=== PATIENT | female | born 1965 | race Caucasian/White ===

== ENCOUNTER 2016-12-27 | Emergency (ER) | payer SELFPAY ==
--- NOTE | 2016-12-27 10:35 | ER Document Report ---
ED Medical Screen (RME) - General Stated Complaint: EAR PAIN Notes: Patient complains of bilateral ear laurie for 2 weeks, left is worse. Has had nasal congestion, no fever. Has tried [id number] Sudafed for relief of symptoms. I have greeted and performed a rapid initial assessment of this patient. A comprehensive ED assessment and evaluation of the patient, analysis of test results and completion of the medical decision making process will be conducted by additional ED providers. - Related Data Allergies/Adverse Reactions: banana [Banana] Allergy (Verified 03/01/12 20:05) cinnamon [Cinnamon] Allergy (Verified 03/01/12 20:05) Garlic [From Garlic Oil] Allergy (Verified 03/01/12 20:05) Penicillins Allergy (Verified 03/01/12 20:05) Sulfa (Sulfonamide Antibiotics) Allergy (Verified 03/01/12 20:05) Past Medical History - Past Medical History Cardiac Medical History: Denies: Hx Coronary Artery Disease, Hx Heart Attack, Hx Hypertension Pulmonary Medical History: Denies: Hx Asthma, Hx Bronchitis, Hx COPD, Hx Pneumonia Neurological Medical History: Denies: Hx Cerebrovascular Accident, Hx Seizures GI Medical History: Denies: Hx Hepatitis, Hx Hiatal Hernia, Hx Ulcer Musculoskeltal Medical History: Denies Hx Arthritis Infectious Medical History: Denies: Hx Hepatitis Past Surgical History: Denies: Hx Hysterectomy, Hx Mastectomy, Hx Open Heart Surgery, Hx Pacemaker - Immunizations Hx Diphtheria, Pertussis, Tetanus Vaccination: No Physical Exam - Vital signs Vitals: Temp Pulse Resp BP Pulse Ox 99.0 F 75 18 149/89 H 98 12/27/16 10:12/27/16 10:12/27/16 10:12/27/16 10:12/27/16 10:27 - General General appearance: Appears well, Alert In distress: None Notes: normal gait Course - Vital Signs Vital signs: Temp Pulse Resp BP Pulse Ox 99.0 F 75 18 149/89 H 98 12/27/16 10:12/27/16 10:12/27/16 10:12/27/16 10:12/27/16 10:27
--- NOTE | 2016-12-27 11:46 | ER Document Report ---
HPI - HPI Patient complains to provider of: ear pain Onset: Other - 2 weeks Onset/Duration: Gradual Quality of pain: Achy Pain Level: 4 Context: Patient states she had upper respiratory symptoms recently that have now progressed to bilateral ear pain. Patient states left ear is more tender than the right. Patient does report some nasal congestion. Patient denies any fever. She denies any fluid or drainage from the ears bilaterally. Associated Symptoms: Earache, Rhinnorhea. denies: Nonproductive cough, Fever Exacerbated by: Denies Relieved by: Denies Similar symptoms previously: No Recently seen / treated by doctor: No - ROS ROS below otherwise negative: Yes Systems Reviewed and Negative: Yes All other systems reviewed and negative - CONSTITUTIONAL Constitutional: DENIES: Fever, Chills - EENT EENT: REPORTS: Ear Pain, Congestion. DENIES: Sore Throat - CARDIOVASCULAR Cardiovascular: DENIES: Chest pain - RESPIRATORY Respiratory: DENIES: Trouble Breathing, Coughing - GASTROINTESTINAL Gastrointestinal: DENIES: Nausea, Patient vomiting, Diarrhea - REPRODUCTIVE Reproductive: DENIES: : - MUSCULOSKELETAL Musculoskeletal: DENIES: Back Pain, Neck Pain - DERM Skin Color: Normal Skin Problems: None Past Medical History - General Information source: Patient - Social History Smoking Status: Never Smoker Chew tobacco use (# tins/day): No Frequency of alcohol use: Rare Drug Abuse: None Occupation: none Lives with: Family Family History: Reviewed & Not Pertinent Patient has suicidal ideation: No Patient has homicidal ideation: No - Medical History Medical History: Negative - Past Medical History Cardiac Medical History: Denies: Hx Coronary Artery Disease, Hx Heart Attack, Hx Hypertension Pulmonary Medical History: Denies: Hx Asthma, Hx Bronchitis, Hx COPD, Hx Pneumonia Neurological Medical History: Denies: Hx Cerebrovascular Accident, Hx Seizures Renal/ Medical History: Denies: Hx Peritoneal Dialysis GI Medical History: Denies: Hx Hepatitis, Hx Hiatal Hernia, Hx Ulcer Musculoskeltal Medical History: Denies Hx Arthritis Infectious Medical History: Denies: Hx Hepatitis Past Surgical History: Reports: Other - Removal of the salivary gland - Immunizations Hx Diphtheria, Pertussis, Tetanus Vaccination: No Vertical Provider Document - CONSTITUTIONAL Agree With Documented VS: Yes Exam Limitations: No Limitations General Appearance: WD/WN, No Apparent Distress - INFECTION CONTROL TRAVEL OUTSIDE OF THE [place] IN LAST 30 DAYS: No - HEENT HEENT: Atraumatic, Normocephalic, Tympanic Membrane Red - left, Tympanic Membrane Bulging - right worse than left. negative: Pharyngeal Exudate, Pharyngeal Tenderness - NECK Neck: Normal Inspection, Supple. negative: Lymphadenopathy-Left, Lymphadenopathy-Right - RESPIRATORY Respiratory: Breath Sounds Normal, No Respiratory Distress O2 Sat by Pulse Oximetry: 98 - CARDIOVASCULAR Cardiovascular: Regular Rate, Regular Rhythm, No Murmur - MUSCULOSKELETAL/EXTREMETIES Musculoskeletal/Extremeties: MAEW - NEURO Level of Consciousness: Awake, Alert, Appropriate - DERM Integumentary: Warm, Dry, No Rash Course - Vital Signs Vital signs: Temp Pulse Resp BP Pulse Ox 99.0 F 75 18 149/89 H 98 12/27/16 10:27 12/27/16 10:27 12/27/16 10:27 12/27/16 10:27 12/27/16 10:27 Discharge - Discharge Clinical Impression: Elevated blood pressure reading Otitis media Qualifiers: Otitis media type: unspecified Laterality: left Chronicity: acute Condition: Stable Disposition: HOME, SELF-CARE Instructions: Otitis Media ([facility]), Azithromycin ([facility]), Oral Narcotic Medication ([facility]) Additional Instructions: Return immediately for any new or worsening symptoms Followup with your primary care provider, call tomorrow to make a followup appointment You may use saline nasal spray [id number] to help with your symptoms. Your blood pressure was elevated today have your primary doctor recheck this in 2 days. You may use Coricidin HBP [id number] to help with congestion Prescriptions: Azithromycin [Zithromax 250 mg Tablet] 250 mg PO ASDIR PRN #6 tablet PRN Reason: Hydrocodone/Acetaminophen [[place] 5-325 Tablet] 1 each PO Q4 PRN #15 tablet PRN Reason: Forms: Elevated Blood Pressure [facility] - Follow up as needed [facility] [Provider Group] - Follow up tomorrow
== END 2016-12-27 12:08 | disposition home or self-care (01) ==
CPT/HCPCS: 99282

== ENCOUNTER 2017-01-07 09:56 | Emergency (ER) | payer SELFPAY ==
[2017-01-07 10:02] VITALS: BP 139/82
--- NOTE | 2017-01-07 11:15 | ER Document Report ---
ED General - General Chief Complaint: Ear Pain Stated Complaint: EAR PAIN Mode of Arrival: Ambulatory Information source: Patient Notes: 51-year-old female presents with complaints of left ear pain pressure. Patient notes symptoms have been ongoing for about a week. Denies any fevers or chills. Patient was treated for pneumonia with azithromycin notes the pneumonia improved but the ear pain continues Denies any other concerns TRAVEL OUTSIDE OF THE [place] IN LAST 30 DAYS: No - HPI Onset: Last week Onset/Duration: Persistent Quality of pain: Achy Severity: Mild Pain Level: 1 Associated symptoms: Other Exacerbated by: Denies Relieved by: Denies Similar symptoms previously: Yes Recently seen / treated by doctor: Yes - Related Data Allergies/Adverse Reactions: banana [Banana] Allergy (Verified 01/07/17 11:09) cinnamon [Cinnamon] Allergy (Verified 01/07/17 11:09) Garlic [From Garlic Oil] Allergy (Verified 01/07/17 11:09) Penicillins Allergy (Verified 01/07/17 11:09) Sulfa (Sulfonamide Antibiotics) Allergy (Verified 01/07/17 11:09) Past Medical History - Social History Smoking Status: Never Smoker Cigarette use (# per day): No Chew tobacco use (# tins/day): No Smoking Education Provided: No Frequency of alcohol use: Occasional Drug Abuse: None Family History: Reviewed & Not Pertinent Patient has suicidal ideation: No Patient has homicidal ideation: No - Past Medical History Cardiac Medical History: Denies: Hx Coronary Artery Disease, Hx Heart Attack, Hx Hypertension Pulmonary Medical History: Denies: Hx Asthma, Hx Bronchitis, Hx COPD, Hx Pneumonia Neurological Medical History: Denies: Hx Cerebrovascular Accident, Hx Seizures Renal/ Medical History: Denies: Hx Peritoneal Dialysis GI Medical History: Denies: Hx Hepatitis, Hx Hiatal Hernia, Hx Ulcer Musculoskeltal Medical History: Denies Hx Arthritis Infectious Medical History: Denies: Hx Hepatitis Past Surgical History: Reports: Other - Removal of the salivary gland. Denies: Hx Hysterectomy, Hx Mastectomy, Hx Open Heart Surgery, Hx Pacemaker - Immunizations Hx Diphtheria, Pertussis, Tetanus Vaccination: No Review of Systems - Review of Systems Notes: REVIEW OF SYSTEMS: CONSTITUTIONAL : Denies fever, chills, or sweats. Denies recent illness. EENT: Left ear pain CARDIOVASCULAR: Denies chest pain. Denies palpitations or racing or irregular heart beat. Denies ankle edema. RESPIRATORY: Denies cough, cold, or chest congestion. Denies shortness of breath, difficulty breathing, or wheezing. GASTROINTESTINAL: Denies abdominal pain or distention. Denies nausea, vomiting , or diarrhea. Denies blood in vomitus, stools, or per rectum. Denies black, tarry stools. Denies constipation. GENITOURINARY: Denies difficulty urinating, painful urination, burning, frequency, blood in urine, or discharge. FEMALE GENITOURINARY: Denies vaginal bleeding, heavy or abnormal periods, irregular periods. Denies vaginal discharge or odor. MUSCULOSKELETAL: Denies back or neck pain or stiffness. Denies joint pain or swelling. SKIN: Denies rash, lesions or sores. HEMATOLOGIC : Denies easy bruising or bleeding. LYMPHATIC: Denies swollen, enlarged glands. NEUROLOGICAL: Denies confusion or altered mental status. Denies passing out or loss of consciousness. Denies dizziness or lightheadedness. Denies headache. Denies weakness or paralysis or loss of use of either side. Denies problems with gait or speech. Denies sensory loss, numbness, or tingling. Denies seizures. PSYCHIATRIC: Denies anxiety or stress. Denies depression, suicidal ideation, or homicidal ideation. ALL OTHER SYSTEMS REVIEWED AND NEGATIVE. Dictation was performed using [employer] voice recognition software PHYSICAL EXAMINATION: GENERAL: Well-appearing, well-nourished and in no acute distress. HEAD: Atraumatic, normocephalic. EYES: Pupils equal round and reactive to light, extraocular movements intact, conjunctiva are normal. ENT: Small effusion noted on the left TM NECK: Normal range of motion, supple without lymphadenopathy LUNGS: Breath sounds clear to auscultation bilaterally and equal. No wheezes rales or rhonchi. HEART: Regular rate and rhythm without murmurs ABDOMEN: Soft, nontender, nondistended abdomen. No guarding, no rebound. No masses appreciated. Female : deferred Musculoskeletal: Normal range of motion, no pitting or edema. No cyanosis. NEUROLOGICAL: Cranial nerves grossly intact. Normal speech, normal gait. Normal sensory, motor exams PSYCH: Normal mood, normal affect. SKIN: Warm, Dry, normal turgor, no rashes or lesions noted. Physical Exam - Vital signs Vitals: Temp Pulse Resp BP Pulse Ox 97.8 F 73 16 139/82 H 100 01/07/17 10:01 01/07/17 10:01 01/07/17 10:01 01/07/17 10:01 01/07/17 10:01 Course - Re-evaluation Re-evalutation: 01/07/17 16:13 On evaluation patient has a left otitis media, encouraged to use Benadryl decongestants will be placed on antibiotics otherwise patient appears well is in no distress After performing a Medical Screening Examination, I estimate there is LOW risk for ACUTE CORONARY SYNDROME, RESPIRATORY FAILURE, SEPSIS OR MENINGITIS, thus I consider the discharge disposition reasonable. The patient and I have discussed the diagnosis and risks, and we agree with discharging home with close follow- up. We also discussed returning to the Emergency Department immediately if new or worsening symptoms occur. We have discussed the symptoms which are most concerning (e.g., changing or worsening pain, trouble swallowing or breathing, neck stiffness, fever) that necessitate immediate return. - Vital Signs Vital signs: Temp Pulse Resp BP Pulse Ox 97.8 F 73 16 139/82 H 100 01/07/17 10:01 01/07/17 10:01 01/07/17 10:01 01/07/17 10:01 01/07/17 10:01 Discharge - Discharge Clinical Impression: Ear pain, left Left otitis media Qualifiers: Otitis media type: serous Chronicity: acute Recurrence: not specified as recurrent Qualified Code(s): H65.02 - Acute serous otitis media, left ear Condition: Stable Disposition: HOME, SELF-CARE Instructions: Otitis Media ([facility]) Additional Instructions: Follow up with your physician tomorrow for further care or return to the ED IMMEDIATELY if symptoms worsen or new concerns occur Prescriptions: Cephalexin Monohydrate [Keflex 500 mg Capsule] 500 mg PO BID #20 capsule
== END 2017-01-07 11:24 | disposition home or self-care (01) ==
LOC: ER 09:56
DX: H65.02 Acute serous otitis media, left ear (principal); H92.02 Otalgia, left ear
CPT/HCPCS: 99282

== ENCOUNTER 2019-01-06 15:29 | Emergency (ER) | payer SELFPAY ==
--- NOTE | 2019-01-06 16:11 | ER Document Report ---
Addendum entered and electronically signed by LESLYE CUETO MD 01/06/19 19:16: Course - Re-evaluation Re-evalutation: 01/06/19 19:14 Note: I had a long conversation with the psychiatric therapist who was evaluated the patient and discussed the case with Dr. Cortes. Anterior lengthy discussion Dr. Cortes had recommended outpatient discharge. I did interview the patient and she is alert and oriented x3. She adamantly denies any suicidal ideation. She has been depressed over her current financial situation and the fact that she is homeless. A list of resources was given to her by the adoption social worker. She prefers to go home today and she is accompanied by her grandmother who seems supportive. There is no criteria to hold her against her will. I did give her the number the [facility] as her blood pressure has been elevated. - Vital Signs Vital signs: Temp Pulse Resp BP Pulse Ox 98.2 F 93 169/96 H 98 01/06/19 15:41 01/06/19 15:41 01/06/19 15:41 01/06/19 15:41 - Laboratory Result Diagrams: 01/06/19 15:55 01/06/19 15:55 Laboratory results interpreted by me: 01/06/19 15:55 Glucose 113 H Salicylates < 1.0 L Acetaminophen < 10 L Addendum entered and electronically signed by LESLYE CUETO MD 01/06/19 19:14: Discharge - Discharge Clinical Impression: Right foot drop, Suicidal ideation, Mood disorder NOS Condition: Stable Disposition: HOME, SELF-CARE Instructions: [facility] Additional Instructions: You have been evaluated by both medical and behavioral health providers while in the emergency department. you have been cleared by both acute medical and psychiatric services. DEPRESSION: Your evaluation reveals that you have mental depression. While symptoms may be vague, they often include disturbance of sleep, fatigue, loss of appetite, and general loss of interest in life. While depression may be a side effect of drugs, or a reaction to a major change in your life, many cases have no known cause. If depression is acute, and related to a major loss in your life, you can e xpect it to clear completely with time. If you have been depressed a long time, are prone to repeated bouts of depression or low mood, or have been thinking of suicide, get help. Depression can be treated with anti-depressant medication and counselling. Long-term depression will often take a few weeks to clear, even with appropriate medication. Follow-up care is important. SUICIDAL IDEATION: Suicidal ideation is a common medical term for thoughts about suicide, which may be as detailed as a formulated plan, without the suicidal act itself. Although most people who undergo suicidal ideation do not commit suicide, some go on to make suicide attempts. The range of suicidal ideation varies greatly from fleeting to detailed planning, role playing, and unsuccessful attempts. While thoughts about suicide are common, most people do not carry out serious actions to commit suicide. Based upon your evaluation and discussion with you, we do not believe you are currently at risk to act upon your thoughts of suicide. You have agreed to return to the Emergency Department, at any time, if you feel inclined to act upon your suicidal thoughts. FOLLOW-UP CARE: You have been provided with the outpatient mental health resource sheet and the [facility] resources. If you experience worsening or a significant change in your symptoms, notify the physician immediately, utilize mobile crisis or return to the Emergency Department at any time for re-evaluation. Note: I put the number for the [facility] on the chart. This is free clinic affiliated with the [facility]. You should get a recheck and blood pressure in the next week. Your blood pressure was elevated. Forms: Elevated Blood Pressure Referrals: [facility] [Outside] - Follow up as needed Addendum entered and electronically signed by LESLYE CUETO MD 01/06/19 19:13: Discharge - Discharge Clinical Impression: Right foot drop, Suicidal ideation, Mood disorder NOS Condition: Stable Disposition: HOME, SELF-CARE Instructions: [facility] Additional Instructions: You have been evaluated by both medical and behavioral health providers while in the emergency department. you have been cleared by both acute medical and psychiatric services. DEPRESSION: Your evaluation reveals that you have mental depression. While symptoms may be vague, they often include disturbance of sleep, fatigue, loss of appetite, and general loss of interest in life. While depression may be a side effect of drugs, or a reaction to a major change in your life, many cases have no known cause. If depression is acute, and related to a major loss in your life, you can expect it to clear completely with time. If you have been depressed a long time, are prone to repeated bouts of depression or low mood, or have been thinking of suicide, get help. Depression can be treated with anti-depressant medication and counselling. Long-term depression will often take a few weeks to clear, even with appropriate medication. Follow-up care is important. SUICIDAL IDEATION: Suicidal ideation is a common medical term for thoughts about suicide, which may be as detailed as a formulated plan, without the suicidal act itself. Although most people who undergo suicidal ideation do not commit suicide, some go on to make suicide attempts. The range of suicidal ideation varies greatly from fleeting to detailed planning, role playing, and unsuccessful attempts. While thoughts about suicide are common, most people do not carry out serious actions to commit suicide. Based upon your evaluation and discussion with you, we do not believe you are currently at risk to act upon your thoughts of suicide. You have agreed to return to the Emergency Department, at any time, if you feel inclined to act upon your suicidal thoughts. FOLLOW-UP CARE: You have been provided with the outpatient mental health resource sheet and the [facility] resources. If you experience worsening or a significant change in your symptoms, notify the physician immediately, utilize mobile crisis or return to the Emergency Department at any time for re-evaluation. Forms: Elevated Blood Pressure Referrals: [facility] [Outside] - Follow up as needed Addendum entered and electronically signed by CADEN SALMON LPC 01/06/19 19:08: Discharge - Discharge Clinical Impression: Right foot drop, Suicidal ideation Condition: Stable Disposition: HOME, SELF-CARE Additional Instructions: You have been evaluated by both medical and behavioral health providers while in the emergency department. you have been cleared by both acute medical and psychiatric services. DEPRESSION: Your evaluation reveals that you have mental depression. While symptoms may be vague, they often include disturbance of sleep, fatigue, loss of appetite, and general loss of interest in life. While depression may be a side effect of drugs, or a reaction to a major change in your life, many cases have no known cause. If depression is acute, and related to a major loss in your life, you can expect it to clear completely with time. If you have been depressed a long time, are prone to repeated bouts of depression or low mood, or have been thinking of suicide, get help. Depression can be treated with anti-depressant medication and counselling. Long-term depression will often take a few weeks to clear, even with appropria te medication. Follow-up care is important. SUICIDAL IDEATION: Suicidal ideation is a common medical term for thoughts about suicide, which may be as detailed as a formulated plan, without the suicidal act itself. Although most people who undergo suicidal ideation do not commit suicide, some go on to make suicide attempts. The range of suicidal ideation varies greatly from fleeting to detailed planning, role playing, and unsuccessful attempts. While thoughts about suicide are common, most people do not carry out serious actions to commit suicide. Based upon your evaluation and discussion with you, we do not believe you are currently at risk to act upon your thoughts of suicide. You have agreed to return to the Emergency Department, at any time, if you feel inclined to act upon your suicidal thoughts. FOLLOW-UP CARE: You have been provided with the outpatient mental health resource sheet and the [facility] resources. If you experience worsening or a significant c hange in your symptoms, notify the physician immediately, utilize mobile crisis or return to the Emergency Department at any time for re-evaluation. Referrals: [facility] Crisis Team [Outside] - Follow up as needed Addendum entered and electronically signed by TYRONE SEVILLA DO 01/06/19 17:52: Course - Vital Signs Vital signs: Temp Pulse Resp BP Pulse Ox 98.2 F 93 169/96 H 98 01/06/19 15:41 01/06/19 15:41 01/06/19 15:41 01/06/19 15:41 - Laboratory Result Diagrams: 01/06/19 15:55 01/06/19 15:55 Laboratory results interpreted by me: 01/06/19 15:55 Glucose 113 H Salicylates < 1.0 L Acetaminophen < 10 L - EKG Interpretation by Me Additional EKG results interpreted by me: 01/06/19 17:52 1748: Normal sinus rhythm, rate 75, normal axis, no ectopy Original Note: ED Psych Disorder / Suicide - General Chief Complaint: Psych Problem Stated Complaint: IVC TRAVEL OUTSIDE OF THE [place] IN LAST 30 DAYS: No - HPI Notes: Patient is a 53-year-old female that presents to the emergency department for chief complaint of Suicidal ideation. Patient came in with signed IVC papers from [facility] for suicidal ideation. She reportedly told him that she frequently thinks of killing herself. She is currently homeless and living in her car with her mother and son. She is denying any suicidal thoughts to me and appears confused as to why [facility] said this. She currently has no complaints other than her right foot has been dropping for the last few months. Past Medical History: Negative Past Surgical History: Negative Social History: Denies tobacco. Reports occasional alcohol. Denies drug use. Family History: Reviewed and noncontributory for presenting illness Allergies: Reviewed, see documented allergy list. REVIEW OF SYSTEMS: CONSTITUTIONAL : No fever No chills No diaphoresis No recent illness EENT: No vision changes No congestion No sore throat CARDIOVASCULAR: No chest pain No palpitations RESPIRATORY: No shortness of breath No cough No difficulty breathing GASTROINTESTINAL: No abdominal pain No nausea No vomiting No diarrhea GENITOURINARY: No dysuria No hematuria No difficulty urinating MUSCULOSKELETAL: No back pain No leg pain No arm pain SKIN: No rashes No lesions LYMPHATIC: No swollen, enlarged glands. NEUROLOGICAL: No lightheadedness No headache No weakness No paresthesias PSYCHIATRIC: No anxiety depression PHYSICAL EXAMINATION: Vital signs reviewed, nursing noted reviewed. GENERAL: Well-appearing, well-nourished and in no acute distress. HEAD: Atraumatic, normocephalic. EYES: Eyes appear normal, extraocular movements intact, sclera anicteric, conjunctiva are normal. ENT: nares patent, oropharynx clear without exudates. Moist mucous membranes. NECK: Normal range of motion, supple without lymphadenopathy LUNGS: Breath sounds clear to auscultation bilaterally and equal. No wheezes rales or rhonchi. HEART: Regular rate and rhythm without murmurs ABDOMEN: Soft, nontender, normoactive bowel sounds. No rebound, guarding, or rigidity. No masses appreciated. EXTREMITIES: Nontender, good range of motion, no pitting or edema. NEUROLOGICAL: Right foot drop, sensory testing grossly intact PSYCH: Normal mood, flat affect. SKIN: Warm, Dry, normal turgor, no rashes or lesions noted on exposed skin - Related Data Allergies/Adverse Reactions: banana [Banana] Allergy (Verified 01/07/17 11:09) cinnamon [Cinnamon] Allergy (Verified 01/07/17 11:09) Garlic [From Garlic Oil] Allergy (Verified 01/07/17 11:09) Penicillins Allergy (Verified 01/07/17 11:09) Sulfa (Sulfonamide Antibiotics) Allergy (Verified 01/07/17 11:09) Past Medical History - Social History Smoking Status: Never Smoker Family History: Reviewed & Not Pertinent - Past Medical History Cardiac Medical History: Denies: Hx Coronary Artery Disease, Hx Heart Attack, Hx Hypertension Pulmonary Medical History: Denies: Hx Asthma, Hx Bronchitis, Hx COPD, Hx Pneumonia Neurological Medical History: Denies: Hx Cerebrovascular Accident, Hx Seizures Renal/ Medical History: Denies: Hx Peritoneal Dialysis GI Medical History: Denies: Hx Hepatitis, Hx Hiatal Hernia, Hx Ulcer Musculoskeletal Medical History: Denies Hx Arthritis Infectious Medical History: Denies: Hx Hepatitis Past Surgical History: Reports: Other - Removal of the salivary gland. Denies: Hx Hysterectomy, Hx Mastectomy, Hx Open Heart Surgery, Hx Pacemaker - Immunizations Hx Diphtheria, Pertussis, Tetanus Vaccination: No Course - Re-evaluation Re-evalutation: 01/06/19 16:11 Vitals reviewed. Nursing notes reviewed. Patient has right foot drop which has been reportedly going on for the last few months. She denies any pain in her foot. Patient is on IVC paperwork and lab work will be obtained for medical clearance. Psych has been consulted. 01/06/19 17:32 Patient's lab work is unremarkable. She is medically cleared for further psych evaluation. Laboratory 01/06/19 01/06/19 15:55 15:55 WBC 7.1 RBC 4.70 Hgb 14.9 Hct 43.6 MCV 93 MCH 31.6 MCHC 34.1 RDW 12.6 Plt Count 247 Seg Neutrophils % 65.5 Lymphocytes % 25.1 Monocytes % 5.9 Eosinophils % 2.3 Basophils % 1.2 Absolute Neutrophils 4.7 Absolute Lymphocytes 1.8 Absolute Monocytes 0.4 Absolute Eosinophils 0.2 Absolute Basophils 0.1 Sodium 140.9 Potassium 4.2 Chloride 101 Carbon Dioxide 30 Anion Gap 10 BUN 18 Creatinine 0.71 Est GFR ( Amer) > 60 Est GFR (Non-Af Amer) > 60 Glucose 113 H Calcium 9.7 Total Bilirubin 0.7 Direct Bilirubin 0.3 Neonat Total Bilirubin Not Reportable Neonat Direct Bilirubin Not Reportable Neonat Indirect Bili Not Reportable AST 30 ALT 32 Alkaline Phosphatase 88 Total Protein 7.8 Albumin 4.6 Salicylates < 1.0 L Acetaminophen < 10 L Serum Alcohol < 10 - Laboratory Result Diagrams: 01/06/19 15:55 01/06/19 15:55 Laboratory results interpreted by me: 01/06/19 15:55 Glucose 113 H Salicylates < 1.0 L Acetaminophen < 10 L Discharge - Discharge Clinical Impression: Right foot drop, Suicidal ideation
[2019-01-06 17:03] LABS: ABSOLUTE BASOPHILS # (AUTO) 0.1 10^3/uL (0.0-0.2); ABSOLUTE EOSINOPHILS # (AUTO) 0.2 10^3/uL (0.0-0.6); ABSOLUTE LYMPHOCYTES (AUTO) 1.8 10^3/uL (0.5-4.7); ABSOLUTE MONOCYTES (AUTO) 0.4 10^3/uL (0.1-1.4); ABSOLUTE NEUT (AUTO) 4.7 10^3/uL (1.7-8.2); BASOPHILS % (AUTO) 1.2 % (0-2); EOSINOPHILS % (AUTO) 2.3 % (0-6); HEMATOCRIT 43.6 % (36.0-47.0); HEMOGLOBIN 14.9 g/dL (12.0-15.5); LYMPHOCYTES % (AUTO) 25.1 % (13-45); MEAN CORPUSCULAR HEMOGLOBIN 31.6 pg (27.0-33.4); MEAN CORPUSCULAR HGB CONC 34.1 g/dL (32.0-36.0); MEAN CORPUSCULAR VOLUME 93 fl (80-97); MONOCYTES % (AUTO) 5.9 % (3-13); PLATELET COUNT 247 10^3/uL (150-450); RED CELL DISTRIBUTION WIDTH 12.6 % (11.5-14.0); SEGMENTED NEUTROPHILS % (AUTO) 65.5 % (42-78); TOTAL CELLS COUNTED % (AUTO) 100 %; WHITE BLOOD COUNT 7.1 10^3/uL (4.0-10.5)
[2019-01-06 17:11] LABS: ALANINE AMINOTRANSFERASE 32 U/L (9-52); ALBUMIN 4.6 g/dL (3.5-5.0); ALKALINE PHOSPHATASE 88 U/L (38-126); ANION GAP 10 (5-19); ASPARTATE AMINO TRANSFERASE 30 U/L (14-36); BILIRUBIN,DIRECT 0.3 mg/dL (0.0-0.4); BILIRUBIN,TOTAL 0.7 mg/dL (0.2-1.3); BLOOD UREA NITROGEN 18 mg/dL (7-20); CALCIUM 9.7 mg/dL (8.4-10.2); CARBON DIOXIDE 30 mmol/L (22-30); CHLORIDE 101 mmol/L (98-107); GLUCOSE 113 mg/dL (75-110); POTASSIUM 4.2 mmol/L (3.6-5.0); SODIUM 140.9 mmol/L (137-145); TOTAL PROTEIN 7.8 g/dL (6.3-8.2)
[2019-01-06 17:12] LABS: ACETAMINOPHEN < 10 ug/mL (10-30); ALCOHOL < 10 mg/dL (NONE DETECTED); SALICYLATE < 1.0 mg/dL (2.0-20.0)
--- NOTE | 2019-01-06 19:16 | PSYCHOLOGICAL NOTE ---
Psych Note - Psych Note Date seen by psych provider: 01/06/19 Time seen by psych provider: 16:50 - Collateral from [facility] worker upon arrival to the ED. Evaluation from [id number]. Psych Note: Reason for Consult: SI with thoughts to shoot self Contact Permissions: Mother Kindra Patient is a 53 year old female who presented to the ED today for her son who had [facility] called to the school for issues. Per [facility] worker upon asking patient questions about her son it was revealed they (patient, 15 year old son, grandmother and 2 dogs) have been homeless and living out of a car since Dec 03, 2018. [facility] worker stated mother reported SI x 2 weeks with thoughts of shooting herself, as well as feelings of hopelessness and helplessness. Mother denied consent for treatment for herself so [facility] petitioned for IVC. Also listed on IVC was a history of alcohol abuse. Patient was sitting at the foot of her bed. When asked about SI and the reported information that she had those feelings for 2 weeks with thoughts to shoot herself she commented "I would never do that, my grandfather did that and I would never put family through that, there are times where I wish I could but that is unrealistic." She then brought up it has been difficult being homeless the past month. She identified they got evicted from a place off [facility], had to be out by Dec 05, and her ex boyfriend was supposed to provide money so they would not get evicted but he did not. She identified they had not looked into the homeless senior living but grandmother had been talking with the [place] (said they couldn't do anything to help, but conversation cut short) when she received the phone call from school about her son. She denied previous mental health history and treatment to include outpatient, medication and inpatient. She denied SI/HI. She did lose her train of thought 2-3 times in mid sentence during evaluation, but recognized it and with reminder got right back into talking. When asked if there was anything else she felt was important for this clinician to know she started crying and said "I miss him." She was referring to her son. She was reminded he was in the same ED just around the corner, this clinician had just spoke with im and he was safe. Patient was alert and oriented to self, person, place, time and situation. Mood was melancholy with congruent affect. She denied SI/HI, admitted it has been rough the past month with being homeless and there are times where she wish she could but said that was unrealistic. She did not appear to be responding to internal stimuli as evidenced by fair eye contact, answering questions appropriately when addressed, and carrying on dialogue conversation. Thought processes were slower, she often lost her train of thought in the middle of a sentence, with reminder/prompt was able to get back on track with conversation, but was otherwise linear. Conversational speech was soft in tone and within normal limits for rate and prosody. Intellectual abilities are estimated to be average. Insight, judgment and impulse control were fair as evidenced by being pen about the struggle being homeless the last month. Behavioral Health Seed Ye[employer] Operator spoke to mother. She identified they have a good relationship. She stated "some of patient seeming far off mostly started when they became homeless." She stated "there are guns and knives in a storage unit, locked up, it would take a lot to rummage through things to find them." She identified patient's grandfather killed himself when patient was young (in 1975). She denied MH history, being on medication and stated she did not know of any recent SA. She acknowledged after patient's first marriage ended she thinks patient dabbled in ecstasy and alcohol but nothing prolonged. She reported for the past 1.5 years patient "has problem remembering things and had concern for e mariam Alzheimer's." She noted patient does not have insurance and funds are low. Contacted call center operations manager DSS worker. Spoke to Hank Barber. Made an APS (patient, grandmother) and CPS (15 year old son) report. Diagnosis: V60.0 (Z59.0) Homelessness (since Dec 03, 2018) 309.28 (F43.23) Adjustment Disorder, With Mixed Anxiety and Depressed Mood Memory issues per grandmother for 1.5 years Impression/Plan: Patient is cleared from acute psychiatric services. Recommendation to rescind IVC. She denied SI/HI and no observed psychosis. She mentioned main struggle is having been homeless the last month and living out of the car. Grandmother noted guns and knives in a storage unit packed away with no immediate access. DSS report made. Outpatient MH resources and the [facility] resources provided. Informed [facility] MCM worker (Mónica Carey) of discharge. Consulted with Dr. Cortes regarding the management and care of patient. ED Physician in agreement with recommendations.
[2019-01-06 19:41] VITALS: BP 157/99
--- NOTE | 2019-01-06 21:22 | EKG REPORT ---
SEVERITY:- BORDERLINE ECG - SINUS RHYTHM LVH BY VOLTAGE : Confirmed by: Genie Bee MD 06-Jan-2019 21:22:15
== END 2019-01-06 19:41 | disposition home or self-care (01) ==
LOC: ER 15:29
DX: F43.23 Adjustment disorder with mixed anxiety and depressed mood (principal); R45.851 Suicidal ideations; Z59.0 Homelessness; M21.371 Foot drop, right foot; Z91.018 Allergy to other foods; Z88.0 Allergy status to penicillin; Z88.2 Allergy status to sulfonamides
CPT/HCPCS: 36415; 80053; 80307; 85025; 93005; 93010; 99285

== ENCOUNTER 2019-01-11 15:08 | Emergency (ER) | payer SELFPAY ==
[2019-01-11 18:36] LABS: ABSOLUTE BASOPHILS # (AUTO) 0.1 10^3/uL (0.0-0.2); ABSOLUTE EOSINOPHILS # (AUTO) 0.1 10^3/uL (0.0-0.6); ABSOLUTE LYMPHOCYTES (AUTO) 1.7 10^3/uL (0.5-4.7); ABSOLUTE MONOCYTES (AUTO) 0.4 10^3/uL (0.1-1.4); ABSOLUTE NEUT (AUTO) 4.4 10^3/uL (1.7-8.2); EOSINOPHILS % (AUTO) 1.8 % (0-6); HEMATOCRIT 43.7 % (36.0-47.0); LYMPHOCYTES % (AUTO) 25.1 % (13-45); MEAN CORPUSCULAR HEMOGLOBIN 31.7 pg (27.0-33.4); MEAN CORPUSCULAR HGB CONC 34.3 g/dL (32.0-36.0); MEAN CORPUSCULAR VOLUME 92 fl (80-97); MONOCYTES % (AUTO) 6.3 % (3-13); PLATELET COUNT 218 10^3/uL (150-450); RED BLOOD COUNT 4.74 10^6/uL (3.72-5.28); RED CELL DISTRIBUTION WIDTH 12.7 % (11.5-14.0); SEGMENTED NEUTROPHILS % (AUTO) 65.8 % (42-78); TOTAL CELLS COUNTED % (AUTO) 100 %; WHITE BLOOD COUNT 6.7 10^3/uL (4.0-10.5)
[2019-01-11 18:39] LABS: APPEARANCE,URINE CLEAR; BILIRUBIN,URINE NEGATIVE (NEGATIVE); COLOR,URINE YELLOW; GLUCOSE, URINE NEGATIVE (NEGATIVE); KETONES,URINE NEGATIVE (NEGATIVE); LEUKOCYTE ESTERASE,URINE NEGATIVE (NEGATIVE); NITRITE,URINE NEGATIVE (NEGATIVE); PROTEIN,URINE NEGATIVE (NEGATIVE); URINE SPECIFIC GRAVITY 1.015
[2019-01-11 19:14] LABS: ALANINE AMINOTRANSFERASE 23 U/L (9-52); ALBUMIN 4.3 g/dL (3.5-5.0); ALKALINE PHOSPHATASE 69 U/L (38-126); ANION GAP 9 (5-19); ASPARTATE AMINO TRANSFERASE 22 U/L (14-36); BILIRUBIN,DIRECT 0.3 mg/dL (0.0-0.4); BILIRUBIN,TOTAL 0.6 mg/dL (0.2-1.3); BLOOD UREA NITROGEN 17 mg/dL (7-20); CALCIUM 9.7 mg/dL (8.4-10.2); CARBON DIOXIDE 31 mmol/L (22-30); CHLORIDE 100 mmol/L (98-107); GLUCOSE 142 mg/dL (75-110); POTASSIUM 3.9 mmol/L (3.6-5.0); SODIUM 140.4 mmol/L (137-145); TOTAL PROTEIN 7.1 g/dL (6.3-8.2)
--- NOTE | 2019-01-11 20:22 | ER Document Report ---
ED Medical Screen (RME) - General Chief Complaint: Leg Swelling Stated Complaint: NUMBNESS Time Seen by Provider: 01/11/19 17:12 Mode of Arrival: Ambulatory Information source: Patient Notes: Patient presents to the emergency department with complaints of bilateral leg swelling and intermittent tingling to her right leg. Patient reports she is currently living in her car and she thinks this may be the cause. Patient denies any history of peripheral edema or CHF. Exam: 2+ pitting edema to bilateral lower extremities. No unilateral leg swelling or erythema noted. I have greeted and performed a rapid initial assessment of this patient. A comprehensive ED assessment and evaluation of the patient, analysis of test results and completion of the medical decision making process will be conducted by additional ED providers. Dictation of this chart was performed using voice recognition software; therefore, there may be some unintended grammatical errors. TRAVEL OUTSIDE OF THE [place] IN LAST 30 DAYS: No - Related Data Allergies/Adverse Reactions: banana [Banana] Allergy (Verified 01/07/17 11:09) cinnamon [Cinnamon] Allergy (Verified 01/07/17 11:09) Garlic [From Garlic Oil] Allergy (Verified 01/07/17 11:09) Penicillins Allergy (Verified 01/07/17 11:09) Sulfa (Sulfonamide Antibiotics) Allergy (Verified 01/07/17 11:09) Past Medical History - Social History Chew tobacco use (# tins/day): No Frequency of alcohol use: None Drug Abuse: None - Past Medical History Cardiac Medical History: Denies: Hx Coronary Artery Disease, Hx Heart Attack, Hx Hypertension Pulmonary Medical History: Denies: Hx Asthma, Hx Bronchitis, Hx COPD, Hx Pneumonia Neurological Medical History: Denies: Hx Cerebrovascular Accident, Hx Seizures Renal/ Medical History: Denies: Hx Peritoneal Dialysis GI Medical History: Denies: Hx Hepatitis, Hx Hiatal Hernia, Hx Ulcer Musculoskeltal Medical History: Denies Hx Arthritis Infectious Medical History: Denies: Hx Hepatitis Past Surgical History: Reports: Other - Removal of the salivary gland. Denies: Hx Hysterectomy, Hx Mastectomy, Hx Open Heart Surgery, Hx Pacemaker - Immunizations Hx Diphtheria, Pertussis, Tetanus Vaccination: No Physical Exam - Vital signs Vitals: Temp Pulse Resp BP Pulse Ox 98.1 F 96 14 157/85 H 97 01/11/19 15:23 01/11/19 15:23 01/11/19 15:23 01/11/19 15:23 01/11/19 15:23 Course - Vital Signs Vital signs: Temp Pulse Resp BP Pulse Ox 98.1 F 96 14 157/85 H 97 01/11/19 15:23 01/11/19 15:23 01/11/19 15:23 01/11/19 15:23 01/11/19 15:23 - Laboratory Result Diagrams: 01/11/19 17:46 01/11/19 17:46 Laboratory results interpreted by me: 01/11/19 01/11/19 17:46 17:46 Carbon Dioxide 31 H Glucose 142 H Urine Urobilinogen 4.0 H
--- NOTE | 2019-01-11 21:17 | ER Document Report ---
ED General - General Chief Complaint: Leg Swelling Stated Complaint: NUMBNESS Time Seen by Provider: 01/11/19 21:17 Mode of Arrival: Ambulatory Information source: Patient Notes: HISTORY OF PRESENT ILLNESS: Patient is a 53-year-old female with no significant past medical history who presents with pain and swelling to both of her legs worsening over the past several days. Location: Bilateral legs Onset: "About 2 weeks ago but worsening in the past few days" Provocation: "Abnormal legs a whole lot" Quality: Aching Radiation: None Severity: Moderate Timing: Constant LMP: "I cannot remember" Associated symptoms: No fevers or chills, no chest pain or shortness of breath, no fall or injuries REVIEW OF SYSTEMS: CONSTITUTIONAL : Denies fever or chills, no sweats. Denies recent illness. EENT: Denies eye, ear, throat, or mouth pain or symptoms. Denies nasal or sinus congestion. CARDIOVASCULAR: Denies chest pain. Positive for leg swelling. RESPIRATORY: Denies cough, cold, or chest congestion. Denies shortness of breath, difficulty breathing, or wheezing. GASTROINTESTINAL: Denies abdominal pain. Denies nausea, vomiting, or diarrhea. Denies constipation. GENITOURINARY: Denies difficulty urinating, painful urination, burning, frequency, or blood in urine. Denies vaginal bleeding, abnormal or irregular periods. MUSCULOSKELETAL: Denies neck or back pain or joint pain or swelling. SKIN: Denies rash or skin lesions. HEMATOLOGIC : Denies easy bruising or bleeding. LYMPHATIC: Denies swollen, enlarged glands. NEUROLOGICAL: Denies altered mental status or loss of consciousness. Denies headache. Denies weakness or paralysis or loss of use of either side. Denies problems with gait or speech. Denies sensory or motor loss. PSYCHIATRIC: Denies anxiety or stress or depression. All other systems reviewed and negative. PHYSICAL EXAMINATION: GENERAL: Well-appearing, well-nourished and in no acute distress. HEAD: Atraumatic, normocephalic. No scalp deformity, depression, or crepitance. EYES: Pupils are 3 mm and equal/round/reactive to light, extraocular movements intact, sclera anicteric, conjunctiva are normal. ENT: Nares patent bilaterally, oropharynx clear without exudates or palatal petechia. Moist mucous membranes. No tonsil hypertrophy. NECK: Normal range of motion, supple without lymphadenopathy. LUNGS: Breath sounds present, equal, and clear to auscultation bilaterally. No wheezes, rales, or rhonchi. HEART: Regular rate and rhythm without murmurs, rubs, or gallops. 2+ peripheral pulses. Normal capillary refill. ABDOMEN: Soft, nontender, nondistended. Normoactive bowel sounds. No guarding, no rebound. No masses appreciated. BACK: Normal contour, no midline tenderness. Rectal exam deferred. PELVC: Deferred. EXTREMITIES: 3+ pitting edema that is equal and symmetric, no erythema or weeping drainage. Normal range of motion, no cyanosis. NEUROLOGICAL: No focal neurological deficits. Moves all extremities spontaneously and on command. PSYCH: Normal mood, normal affect. No suicidal thoughts/ideations. No homocidal thoughts/ideations. No hallucinations. SKIN: Warm, dry, normal turgor, no rashes or lesions noted. ASSESSMENT AND PLAN: This patient is a 53-year-old female who presents with swelling in the bilateral lower extremities consistent with peripheral edema. No indication for imaging at this time given symmetric and bilateral nature of the symptoms. 1. Will give oral Lasix with tramadol and reassess. 2. Labs indicate normal renal function as well as no acute pathology. TRAVEL OUTSIDE OF THE [place] IN LAST 30 DAYS: No - Related Data Allergies/Adverse Reactions: banana [Banana] Allergy (Verified 01/07/17 11:09) cinnamon [Cinnamon] Allergy (Verified 01/07/17 11:09) Garlic [From Garlic Oil] Allergy (Verified 01/07/17 11:09) Penicillins Allergy (Verified 01/07/17 11:09) Sulfa (Sulfonamide Antibiotics) Allergy (Verified 01/07/17 11:09) Past Medical History - General Information source: Patient - Social History Smoking Status: Never Smoker Chew tobacco use (# tins/day): No Frequency of alcohol use: None Drug Abuse: None Lives with: Family Family History: Reviewed & Not Pertinent Patient has suicidal ideation: No Patient has homicidal ideation: No - Past Medical History Cardiac Medical History: Reports: None Denies: Hx Coronary Artery Disease, Hx Heart Attack, Hx Hypertension Pulmonary Medical History: Denies: Hx Asthma, Hx Bronchitis, Hx COPD, Hx Pneumonia EENT Medical History: Reports: None Neurological Medical History: Reports: None. Denies: Hx Cerebrovascular Accident, Hx Seizures Endocrine Medical History: Reports: None Renal/ Medical History: Reports: None. Denies: Hx Peritoneal Dialysis Malignancy Medical History: Reports: None GI Medical History: Reports: None. Denies: Hx Hepatitis, Hx Hiatal Hernia, Hx Ulcer Musculoskeletal Medical History: Reports None, Denies Hx Arthritis Skin Medical History: Reports None Psychiatric Medical History: Reports: None Traumatic Medical History: Reports: None Infectious Medical History: Reports: None. Denies: Hx Hepatitis Surgical Hx: Negative Past Surgical History: Reports: None, Other - Removal of the salivary gland. Denies: Hx Hysterectomy, Hx Mastectomy, Hx Open Heart Surgery, Hx Pacemaker - Immunizations Hx Diphtheria, Pertussis, Tetanus Vaccination: No Physical Exam - Vital signs Vitals: Temp Pulse Resp BP Pulse Ox 98.1 F 96 14 157/85 H 97 01/11/19 15:23 01/11/19 15:23 01/11/19 15:23 01/11/19 15:23 01/11/19 15:23 Course - Re-evaluation Re-evalutation: 01/11/19 22:23 Patient will be discharged home with return precautions and follow-up with cardiology. Patient voices both understanding and agreeing with the plan. - Vital Signs Vital signs: Temp Pulse Resp BP Pulse Ox 98.1 F 96 14 157/85 H 97 01/11/19 15:23 01/11/19 15:23 01/11/19 15:23 01/11/19 15:23 01/11/19 15:23 - Laboratory Result Diagrams: 01/11/19 17:46 01/11/19 17:46 Laboratory results interpreted by me: 01/11/19 01/11/19 17:46 17:46 Carbon Dioxide 31 H Glucose 142 H Urine Urobilinogen 4.0 H Discharge - Discharge Clinical Impression: Peripheral edema Condition: Good Disposition: HOME, SELF-CARE Instructions: Edema, Peripheral ([facility]) Additional Instructions: You have been evaluated in the Emergency Department for swelling in your legs. While here, you had blood work that was normal and it is now safe to be discharged home. You have been given a prescription for a diuretic to help get rid of the fluid, take this as instructed. Please follow-up with your primary physician as well as a motors and generators inspector as instructed in 1 week. Return to the Emergency Department if you experience worsening swelling, chest pain, difficulty breathing, or any other concerning symptoms. Prescriptions: Tramadol HCl [Ultram 50 mg Tablet] 50 mg PO Q6HP PRN #28 tablet PRN Reason: For Pain Furosemide [Lasix 20 mg Tablet] 20 mg PO QAM #30 tablet Referrals: MELLY HAILE MD [ACTIVE STAFF] - Follow up as needed Print Language: Togolese
[2019-01-11] MEDS ORDERED: TRAMADOL HCL 50 MG TABLET PO ONE (22:06)
[2019-01-11] MEDS ORDERED: FUROSEMIDE 40 MG TABLET PO ONE (22:06)
[2019-01-11 22:39] VITALS: BP 146/76
== END 2019-01-11 22:40 | disposition home or self-care (01) ==
LOC: ER 15:08
DX: R60.9 Edema, unspecified (principal); Z88.0 Allergy status to penicillin; Z88.2 Allergy status to sulfonamides
CPT/HCPCS: 36415; 80053; 81001; 85025; 99283

== ENCOUNTER → 2019-11-19 | Outpatient (CLI) | payer MEDICAID ==
[2019-11-19 09:09] LABS: ABSOLUTE BASOPHILS # (AUTO) 0.1 10^3/uL (0.0-0.2); ABSOLUTE EOSINOPHILS # (AUTO) 0.1 10^3/uL (0.0-0.6); ABSOLUTE LYMPHOCYTES (AUTO) 1.7 10^3/uL (0.5-4.7); ABSOLUTE MONOCYTES (AUTO) 0.5 10^3/uL (0.1-1.4); BASOPHILS % (AUTO) 1.1 % (0-2); EOSINOPHILS % (AUTO) 1.8 % (0-6); HEMATOCRIT 37.9 % (36.0-47.0); HEMOGLOBIN 13.3 g/dL (12.0-15.5); LYMPHOCYTES % (AUTO) 32.2 % (13-45); MEAN CORPUSCULAR HEMOGLOBIN 32.3 pg (27.0-33.4); MEAN CORPUSCULAR HGB CONC 35.1 g/dL (32.0-36.0); MEAN CORPUSCULAR VOLUME 92 fl (80-97); MONOCYTES % (AUTO) 8.4 % (3-13); PLATELET COUNT 207 10^3/uL (150-450); RED BLOOD COUNT 4.12 10^6/uL (3.72-5.28); RED CELL DISTRIBUTION WIDTH 12.2 % (11.5-14.0); SEGMENTED NEUTROPHILS % (AUTO) 56.5 % (42-78); TOTAL CELLS COUNTED % (AUTO) 100 %; WHITE BLOOD COUNT 5.4 10^3/uL (4.0-10.5)
[2019-11-19 09:30] LABS: ALBUMIN 4.1 g/dL (3.5-5.0); ALKALINE PHOSPHATASE 56 U/L (38-126); ANION GAP 9 (5-19); ASPARTATE AMINO TRANSFERASE 25 U/L (14-36); BILIRUBIN,DIRECT 0.2 mg/dL (0.0-0.4); BILIRUBIN,TOTAL 0.8 mg/dL (0.2-1.3); BLOOD UREA NITROGEN 21 mg/dL (7-20); CALCIUM 9.3 mg/dL (8.4-10.2); CARBON DIOXIDE 31 mmol/L (22-30); CHLORIDE 99 mmol/L (98-107); GLUCOSE 112 mg/dL (75-110); POTASSIUM 3.9 mmol/L (3.6-5.0)
== END ==
LOC: LAB 08:46
PROVIDERS: ATTEND Internal Medicine Pulmonary Disease
DX: R41.82 Altered mental status, unspecified (principal)
CPT/HCPCS: 36415; 80053; 83036; 84443; 85025